=== PATIENT | female | born 1950 | race Caucasian/White ===

== ENCOUNTER 2018-07-26 21:00 | Inpatient (IN) | payer BC ==
[~2018-07-26] VITALS: Ht 157.5 cm; Wt 59.0 kg
[2018-07-26 21:00] VITALS: BP 130/76
--- NOTE | 2018-07-26 21:00 | NUR ---
ED Nurse Note: pt was brought in by ambulance from home c/o dry mouth, pt hr is elevated and breathing is fast, pt was advised to control breathing,. pt hooked on monitor. rt on bedside. ermd on bedside . will continue to monitor.
[2018-07-26] MEDS ORDERED: Meclizine 25mg tab ORAL ONE (21:15)
--- NOTE | 2018-07-26 21:18 | Emergency Room Report ---
History of Present Illness General Chief Complaint: Dyspnea/Respdistress Source: Patient Present Illness HPI Patient is a 68-year-old female presented from home after increased dizziness. Patient reports of increased vertigo sensation. She reports having associated nausea and dry mouth. She reports having some prior history of some type of encephalopathy. Patient presented via EMS. Allergies: Coded Allergies: No Known Allergies (Unverified , 07/26/18) Patient History Past Medical History: see triage record Last Menstrual Period: NA Reviewed Nursing Documentation: PMH: Agreed; PSxH: Agreed Nursing Documentation-PMH History Of Psychiatric Problem: Yes - ANXIETY Review of Systems All Other Systems: negative except mentioned in HPI Physical Exam Vital Signs Date Time Temp Pulse Resp B/P (MAP) Pulse Ox O2 Delivery O2 Flow Rate FiO2 07/26/18 20:49 98.6 84 16 130/76 100 Room Air Sp02 EP Interpretation: reviewed, normal General Appearance: normal inspection, alert, GCS 15, Chronically Ill Head: atraumatic ENT: normal ENT inspection, normal voice, other - decreased hearing Neck: normal inspection, supple, no bony tend, limited range of motion Respiratory: normal inspection, lungs clear, normal breath sounds, no respiratory distress, no retraction, no wheezing Cardiovascular #1: regular rate, rhythm, no edema Gastrointestinal: normal inspection, normal bowel sounds, non tender, soft, no guarding, no hernia Genitourinary: no CVA tenderness Musculoskeletal: normal inspection, back normal, normal range of motion Neurologic: normal inspection, alert, oriented x3, responsive, 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 Differential diagnosis include was not limited to hyperventilation, pulmonary embolism, acidosis, anemia among others. Because of complexity of patient's case laboratory testing and imaging studies were ordered. Patient was noted to have pH on ABG 7.6 associated with a low CO2 consistent with a respiratory acidosis. Patient was noted to have diminished bicarbonate level. She was started on IV fluids. Lactic acid level was noted to be markedly elevated. Patient shows some evidence of urinary infection was started on IV antibiotics. Chest x-ray 1 view read by radiology showed cardiomegaly and mild tortuosity of the thoracic aorta with lower lobe reticulonodular interstitial prominence. Dr. Adelso Metzger was contacted for inpatient management. Labs Test 07/26/18 21:10 07/26/18 21:12 07/26/18 21:25 07/26/18 22:10 White Blood Count 7.9 K/UL (4.8-10.8) Red Blood Count 4.54 M/UL (4.20-5.40) Hemoglobin 14.1 G/DL (12.0-16.0) Hematocrit 41.3 % (37.0-47.0) Mean Corpuscular Volume 91 FL (80-99) Mean Corpuscular Hemoglobin 31.1 PG (27.0-31.0) Mean Corpuscular Hemoglobin Concent 34.2 G/DL (32.0-36.0) Red Cell Distribution Width 10.4 % (11.6-14.8) Platelet Count 459 K/UL (150-450) Mean Platelet Volume 5.6 FL (6.5-10.1) Neutrophils (%) (Auto) 75.7 % (45.0-75.0) Lymphocytes (%) (Auto) 17.4 % (20.0-45.0) Monocytes (%) (Auto) 5.5 % (1.0-10.0) Eosinophils (%) (Auto) 0.5 % (0.0-3.0) Basophils (%) (Auto) 0.9 % (0.0-2.0) Sodium Level 133 MMOL/L (136-145) Potassium Level 3.4 MMOL/L (3.5-5.1) Chloride Level 97 MMOL/L (98-107) Carbon Dioxide Level 18 MMOL/L (21-32) Anion Gap 18 mmol/L (5-15) Blood Urea Nitrogen 15 mg/dL (7-18) Creatinine 0.9 MG/DL (0.55-1.30) Estimat Glomerular Filtration Rate > 60 mL/min (>60) Glucose Level 164 MG/DL (74-106) Lactic Acid Level 5.50 mmol/L (0.4-2.0) Calcium Level 9.4 MG/DL (8.5-10.1) Total Bilirubin 0.4 MG/DL (0.2-1.0) Aspartate Amino Transf (AST/SGOT) 15 U/L (15-37) Alanine Aminotransferase (ALT/SGPT) 19 U/L (12-78) Alkaline Phosphatase 62 U/L (46-116) Total Creatine Kinase 54 U/L (26-308) Creatine Kinase MB < 0.5 NG/ML (0.0-3.6) Creatine Kinase MB Relative Index 0.9 Troponin I 0.016 ng/mL (0.000-0.056) Total Protein 8.2 G/DL (6.4-8.2) Albumin 4.0 G/DL (3.4-5.0) Globulin 4.2 g/dL Albumin/Globulin Ratio 1.0 (1.0-2.7) Arterial Blood pH 7.614 (7.350-7.450) Arterial Blood Partial Pressure CO2 20.0 mmHg (35.0-45.0) Arterial Blood Partial Pressure O2 95.0 mmHg (75.0-100.0) Arterial Blood HCO3 19.8 mmol/L (22.0-26.0) Arterial Blood Oxygen Saturation 97.8 % (95-100) Arterial Blood Base Excess 0.7 (-2-2) Genaro Test Positive Urine Color Pale yellow Urine Appearance Slightly cloudy Urine pH 6 (4.5-8.0) Urine Specific [place] 1.025 (1.005-1.035) Urine Protein 1+ (NEGATIVE) Urine Glucose (UA) Negative (NEGATIVE) Urine Ketones 2+ (NEGATIVE) Urine Blood 4+ (NEGATIVE) Urine Nitrite Negative (NEGATIVE) Urine Bilirubin Negative (NEGATIVE) Urine Urobilinogen Normal MG/DL (0.0-1.0) Urine Leukocyte Esterase 1+ (NEGATIVE) Urine RBC 20-30 /HPF (0 - 2) Urine WBC 5-10 /HPF (0 - 2) Urine Squamous Epithelial Cells Few /LPF (NONE/OCC) Urine Bacteria Few /HPF (NONE) Urine Mucus Moderate /LPF (NONE/OCC) Salicylates Level 1.2 ug/mL (2.8-20) EKG Diagnostic Results Rate: normal Rhythm: NSR ST Segments: no acute changes Rhythm Strip Diag. Results EP Interpretation: yes Rhythm: NSR, no PVC's, no ectopy Last Vital Signs Date Time Temp Pulse Resp B/P (MAP) Pulse Ox O2 Delivery O2 Flow Rate FiO2 07/26/18 20:49 98.6 84 16 130/76 100 Room Air Status: improved Disposition: ADMITTED INPATIENT Condition: Stable Felipe Soliman MD Jul 26, 2018 21:18
[2018-07-26 21:45] LABS: BASOPHILS % (AUTO) 0.9 % (0.0-2.0); EOSINOPHILS % (AUTO) 0.5 % (0.0-3.0); HEMATOCRIT 41.3 % (37.0-47.0); HEMOGLOBIN 14.1 G/DL (12.0-16.0); LYMPHOCYTES % (AUTO) 17.4 % (20.0-45.0); MEAN CORPUSCULAR VOLUME 91 FL (80-99); MONOCYTES % (AUTO) 5.5 % (1.0-10.0); NEUTROPHILS % (AUTO) 75.7 % (45.0-75.0); PLATELET COUNT 459 K/UL (150-450); RED BLOOD COUNT 4.54 M/UL (4.20-5.40); RED CELL DISTRIBUTION WIDTH 10.4 % (11.6-14.8); WHITE BLOOD COUNT 7.9 K/UL (4.8-10.8)
[2018-07-26 21:45] LABS: APPEARANCE,URINE SLIGHTLY CLOUDY; BILIRUBIN, URINE NEGATIVE (NEGATIVE); COLOR,URINE PALE YELLOW; GLUCOSE, URINE (UA) NEGATIVE (NEGATIVE); KETONES,URINE 2+ (NEGATIVE); LEUKOCYTE ESTERASE ,URINE 1+ (NEGATIVE); NITRITE,URINE NEGATIVE (NEGATIVE); PH,URINE 6 (4.5-8.0); PROTEIN,URINE 1+ (NEGATIVE); UROBILINOGEN,URINE NORMAL MG/DL (0.0-1.0)
[2018-07-26 22:11] LABS: ANION GAP 18 mmol/L (5-15); BLOOD UREA NITROGEN 15 mg/dL (7-18); CALCIUM 9.4 MG/DL (8.5-10.1); CARBON DIOXIDE 18 MMOL/L (21-32); CHLORIDE 97 MMOL/L (98-107); CREATININE 0.9 MG/DL (0.55-1.30); POTASSIUM 3.4 MMOL/L (3.5-5.1); SODIUM 133 MMOL/L (136-145)
[2018-07-26 22:24] LABS: ALANINE AMINOTRANSFERASE 19 U/L (12-78); ALKALINE PHOSPHATASE 62 U/L (46-116); ASPARTATE AMINO TRANSFERASE 15 U/L (15-37); BILIRUBIN,TOTAL 0.4 MG/DL (0.2-1.0); CKMB < 0.5 NG/ML (0.0-3.6); CREATINE KINASE 54 U/L (26-308)
--- NOTE | 2018-07-26 22:43 | NUR ---
ED Nurse Note: pt went to ct with tech.
[2018-07-26 22:45] VITALS: BP 125/78
--- NOTE | 2018-07-26 22:53 | NUR ---
ED Nurse Note: pt went back fro ct with tech
[2018-07-26] MEDS ORDERED: Ampicillin/Sulbactam Sod 3 GM in NS 110 ML IVPB ONE (23:00)
[2018-07-26] MEDS ORDERED: Morphine Sulfate 2mg/ml Inj IVP PRN (23:30)
[2018-07-26] MEDS ORDERED: Acetaminophen 650 MG SUPP RECTAL PRN (23:30)
[2018-07-26] MEDS ORDERED: LEVOTHYROXINE75 MCG ORAL (23:51)
[2018-07-26 23:53] VITALS: BP 117/72
[2018-07-27] VITALS (7 sets, daily range): BP systolic 99–130; BP diastolic 62–91
--- NOTE | 2018-07-27 00:44 | NUR ---
ED Nurse Note: pt is admitted to the hospital, report given to sol scales.
--- NOTE | 2018-07-27 01:10 | NUR ---
ED Nurse Note: pt was trensfered by rn and funeral prearrangement counselor to room 202 tele,pt and pt belongings given to elidia scales.
--- NOTE | 2018-07-27 01:12 | NUR ---
NURSE NOTES: Received report from ER nurse RACHELL Duffy. Patient was transferred from ER via stretcher with 2 staff. patient is alert, verbally responsive, able to make needs known. denies any pain at this time. IV site is to right AC 20g and is intact. Oriented patient about the use of call light for assistance. Bed is in lowest position. Call light is within easy reach. Will continue to monitor. Addendum: 07/27/18 at 0228 by Krista Navarro RN NURSE NOTES: Received report from ER nurse Tati RN. Patient was transferred from ER via stretcher with 2 staff. patient is alert, verbally responsive, able to make needs known. denies any pain at this time. IV site is to Left AC 20g and is intact. Oriented patient about the use of call light for assistance. Bed is in lowest position. Call light is within easy reach. Will continue to monitor.
--- NOTE | 2018-07-27 01:15 | NUR ---
NURSE NOTES: Paged Feliciano Pineda , Currently awaiting for call back to verify admission orders.
--- NOTE | 2018-07-27 03:28 | NUR ---
NURSE NOTES: Received call from Dr Metzger with Diet order, CBC, BMP in AM. per Dr Metzger, call Dr Zaldivar to verify other orders. Paged Dr Zaldivar. Currently awaiting for Dr. Zaldivar to call back.
--- NOTE | 2018-07-27 05:56 | NUR ---
NURSE NOTES: paged/ left message with Dr Zaldivar again.
[2018-07-27 06:52] LABS: BASOPHILS % (AUTO) 0.5 % (0.0-2.0); EOSINOPHILS % (AUTO) 0.3 % (0.0-3.0); HEMATOCRIT 37.5 % (37.0-47.0); HEMOGLOBIN 12.9 G/DL (12.0-16.0); LYMPHOCYTES % (AUTO) 18.8 % (20.0-45.0); MEAN CORPUSCULAR VOLUME 91 FL (80-99); MONOCYTES % (AUTO) 6.7 % (1.0-10.0); NEUTROPHILS % (AUTO) 73.7 % (45.0-75.0); PLATELET COUNT 370 K/UL (150-450); RED BLOOD COUNT 4.13 M/UL (4.20-5.40); RED CELL DISTRIBUTION WIDTH 10.9 % (11.6-14.8); WHITE BLOOD COUNT 8.2 K/UL (4.8-10.8)
[2018-07-27 07:01] LABS: ANION GAP 10 mmol/L (5-15); BLOOD UREA NITROGEN 9 mg/dL (7-18); CALCIUM 8.9 MG/DL (8.5-10.1); CARBON DIOXIDE 25 MMOL/L (21-32); CHLORIDE 105 MMOL/L (98-107); CREATININE 0.8 MG/DL (0.55-1.30); POTASSIUM 3.7 MMOL/L (3.5-5.1); SODIUM 140 MMOL/L (136-145)
--- NOTE | 2018-07-27 07:54 | NUR ---
HAND-OFF: Report given to RACHELL Desai .
--- NOTE | 2018-07-27 07:54 | NUR ---
NURSE NOTES: Received report from Tete LOVETT. Pt is awake, alert, oriented x4, sitting up in bed having breakfast. Denies pain currently, on room air with no respiratory distress. Skin is intact. IV access on left AC #20G, saline lock, patent/intact. Pt is ambulatory with steady gait, however feeling weak and tired. PT eval to be done today. Call light is placed within easy reach, bed in lowest position, two side rails up, brakes engaged, alarm on. Will continue to monitor and follow plan of care per MD orders and protocol.
[2018-07-27 08:16] LABS: ALANINE AMINOTRANSFERASE 17 U/L (12-78); ALBUMIN 3.4 G/DL (3.4-5.0); ALKALINE PHOSPHATASE 53 U/L (46-116); ASPARTATE AMINO TRANSFERASE 15 U/L (15-37); BILIRUBIN,DIRECT < 0.1 MG/DL (0.0-0.3); BILIRUBIN,TOTAL 0.5 MG/DL (0.2-1.0); CHOLESTEROL 204 MG/DL (< 200); HDL CHOLESTEROL 50 MG/DL (40-60); TRIGLYCERIDES 69 MG/DL (30-150)
[2018-07-27] MEDS ORDERED: Heparin 5000 units/ml inj SUBQ SCH (09:00)
[2018-07-27] MEDS ORDERED: Morphine Sulfate 2mg/ml Inj IVP PRN ×2 (10:30→17:05)
[2018-07-27] MEDS ORDERED: Acetaminophen 650 MG SUPP RECTAL PRN ×2 (10:30→17:05)
--- NOTE | 2018-07-27 10:58 | Diagnostic Imaging Report ---
Indication: Headache Technique: Contiguous 5 mm thick transaxial imaging of the head obtained in a Siemens Sensation [address] scanner. Soft tissue and bone windows generated. Automatic Exposure Control was utilized. Total Dose length Product (DLP): 1390.[address] Dose Index Volume (CTDIvol): 70.38 mGy Comparison: none Findings: The size and configuration of the cortical sulci, basal cisterns, and ventricles are within normal limits for age. There is no mass effect, midline shift, or edema identified. There is no evidence of acute hemorrhage or abnormal intra-axial or extra-axial fluid collections. The bones and soft tissues are unremarkable. Impression: No mass effect, edema or acute bleed. The CT scanner at [facility] is accredited by the [employer] and the scans are performed using dose optimization techniques as appropriate to a performed exam including Automatic Exposure control.
--- NOTE | 2018-07-27 11:45 | Diagnostic Imaging Report ---
Indication: Dyspnea Comparison: None A single view chest radiograph was obtained. Findings: Interstitial prominence demonstrated. Mild vascular prominence also noted with borderline cardiomegaly. Bones are osteopenic. IMPRESSION: Suspected mild CHF
--- NOTE | 2018-07-27 14:13 | Consultation ---
History of Present Illness General Date patient seen: Jul 27, 2018 Chief Complaint: Dyspnea/Respdistress Present Illness HPI 68-year-old female without any PMHx presented to ER with cc of dizziness and vertigo sensation. She reports having associated nausea and dry mouth. On further questioning, pt stated that she was invited to a green party and she might have ingested some brownies with Marijuana, Allergies: Coded Allergies: No Known Allergies (Unverified , 07/26/18) Medication History Scheduled Levothyroxine Sodium* (Levothyroxine Sodium*), 75 MCG ORAL DAILY, (Reported) Patient History Healthcare decision maker Resuscitation status Full Code Advanced Directive on File No Past Medical/Surgical History Past Medical/Surgical History: (1) Hypothyroidism Review of Systems All Other Systems: negative except mentioned in HPI Physical Exam General Appearance: WD/WN Lines, tubes and drains: peripheral HEENT: normocephalic, atraumatic Neck: non-tender, normal alignment Respiratory/Chest: chest wall non-tender, lungs clear Cardiovascular/Chest: normal peripheral pulses Abdomen: normal bowel sounds, non tender Skin Exam: normal pigmentation 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 normal Last 24 Hour Vital Signs Date Time Temp Pulse Resp B/P (MAP) Pulse Ox O2 Delivery O2 Flow Rate FiO2 07/27/18 12:00 98.1 70 18 99/63 (75) 98 07/27/18 09:00 Room Air 07/27/18 08:00 80 07/27/18 08:00 97.4 92 18 110/76 (87) 97 07/27/18 04:00 84 07/27/18 04:00 98.2 77 20 106/72 (83) 97 07/27/18 02:02 Room Air 07/27/18 02:01 95 07/27/18 01:10 98.0 88 24 129/76 99 Room Air 07/27/18 01:10 99.2 88 20 113/78 (90) 97 07/27/18 01:05 98.6 88 16 125/78 100 Room Air 07/26/18 23:53 98.0 96 17 117/72 100 Room Air 07/26/18 22:45 98.6 90 16 125/78 100 Room Air 07/26/18 21:00 98.6 84 16 130/76 100 Room Air 07/26/18 21:00 84 16 Room Air 07/26/18 20:49 98.6 84 16 130/76 100 Room Air Intake and Output 07/26/18 07/27/18 18:59 06:59 Intake Total 3970 ml Balance 3970 ml Intake Oral 260 ml IV Total 3710 ml # Voids 7 Laboratory Tests Test 07/26/18 21:10 07/26/18 21:12 07/26/18 21:25 07/26/18 21:49 White Blood Count 7.9 K/UL (4.8-10.8) Red Blood Count 4.54 M/UL (4.20-5.40) Hemoglobin 14.1 G/DL (12.0-16.0) Hematocrit 41.3 % (37.0-47.0) Mean Corpuscular Volume 91 FL (80-99) Mean Corpuscular Hemoglobin 31.1 PG (27.0-31.0) H Mean Corpuscular Hemoglobin Concent 34.2 G/DL (32.0-36.0) Red Cell Distribution Width 10.4 % (11.6-14.8) L Platelet Count 459 K/UL (150-450) H Mean Platelet Volume 5.6 FL (6.5-10.1) L Neutrophils (%) (Auto) 75.7 % (45.0-75.0) H Lymphocytes (%) (Auto) 17.4 % (20.0-45.0) L Monocytes (%) (Auto) 5.5 % (1.0-10.0) Eosinophils (%) (Auto) 0.5 % (0.0-3.0) Basophils (%) (Auto) 0.9 % (0.0-2.0) Sodium Level 133 MMOL/L (136-145) L Potassium Level 3.4 MMOL/L (3.5-5.1) L Chloride Level 97 MMOL/L (98-107) L Carbon Dioxide Level 18 MMOL/L (21-32) L Anion Gap 18 mmol/L (5-15) H Blood Urea Nitrogen 15 mg/dL (7-18) Creatinine 0.9 MG/DL (0.55-1.30) Estimat Glomerular Filtration Rate > 60 mL/min (>60) Glucose Level 164 MG/DL (74-106) H Lactic Acid Level 5.50 mmol/L (0.4-2.0) H 2.30 mmol/L (0.66-2.22) H Calcium Level 9.4 MG/DL (8.5-10.1) Total Bilirubin 0.4 MG/DL (0.2-1.0) Aspartate Amino Transf (AST/SGOT) 15 U/L (15-37) Alanine Aminotransferase (ALT/SGPT) 19 U/L (12-78) Alkaline Phosphatase 62 U/L (46-116) Total Creatine Kinase 54 U/L (26-308) Creatine Kinase MB < 0.5 NG/ML (0.0-3.6) Creatine Kinase MB Relative Index 0.9 Troponin I 0.016 ng/mL (0.000-0.056) Total Protein 8.2 G/DL (6.4-8.2) Albumin 4.0 G/DL (3.4-5.0) Globulin 4.2 g/dL Albumin/Globulin Ratio 1.0 (1.0-2.7) Arterial Blood pH 7.614 (7.350-7.450) Arterial Blood Partial Pressure CO2 20.0 mmHg (35.0-45.0) *L Arterial Blood Partial Pressure O2 95.0 mmHg (75.0-100.0) Arterial Blood HCO3 19.8 mmol/L (22.0-26.0) L Arterial Blood Oxygen Saturation 97.8 % (95-100) Arterial Blood Base Excess 0.7 (-2-2) Genaro Test Positive Urine Color Pale yellow Urine Appearance Slightly cloudy Urine pH 6 (4.5-8.0) Urine Specific [place] 1.025 (1.005-1.035) Urine Protein 1+ (NEGATIVE) H Urine Glucose (UA) Negative (NEGATIVE) Urine Ketones 2+ (NEGATIVE) H Urine Blood 4+ (NEGATIVE) H Urine Nitrite Negative (NEGATIVE) Urine Bilirubin Negative (NEGATIVE) Urine Urobilinogen Normal MG/DL (0.0-1.0) Urine Leukocyte Esterase 1+ (NEGATIVE) H Urine RBC 20-30 /HPF (0 - 2) H Urine WBC 5-10 /HPF (0 - 2) H Urine Squamous Epithelial Cells Few /LPF (NONE/OCC) Urine Bacteria Few /HPF (NONE) Urine Mucus Moderate /LPF (NONE/OCC) H Test 07/26/18 22:10 07/27/18 06:40 Salicylates Level 1.2 ug/mL (2.8-20) L White Blood Count 8.2 K/UL (4.8-10.8) Red Blood Count 4.13 M/UL (4.20-5.40) L Hemoglobin 12.9 G/DL (12.0-16.0) Hematocrit 37.5 % (37.0-47.0) Mean Corpuscular Volume 91 FL (80-99) Mean Corpuscular Hemoglobin 31.3 PG (27.0-31.0) H Mean Corpuscular Hemoglobin Concent 34.5 G/DL (32.0-36.0) Red Cell Distribution Width 10.9 % (11.6-14.8) L Platelet Count 370 K/UL (150-450) Mean Platelet Volume 5.6 FL (6.5-10.1) L Neutrophils (%) (Auto) 73.7 % (45.0-75.0) Lymphocytes (%) (Auto) 18.8 % (20.0-45.0) L Monocytes (%) (Auto) 6.7 % (1.0-10.0) Eosinophils (%) (Auto) 0.3 % (0.0-3.0) Basophils (%) (Auto) 0.5 % (0.0-2.0) Sodium Level 140 MMOL/L (136-145) Potassium Level 3.7 MMOL/L (3.5-5.1) Chloride Level 105 MMOL/L (98-107) Carbon Dioxide Level 25 MMOL/L (21-32) Anion Gap 10 mmol/L (5-15) Blood Urea Nitrogen 9 mg/dL (7-18) Creatinine 0.8 MG/DL (0.55-1.30) Estimat Glomerular Filtration Rate > 60 mL/min (>60) Glucose Level 99 MG/DL (74-106) Calcium Level 8.9 MG/DL (8.5-10.1) Total Bilirubin 0.5 MG/DL (0.2-1.0) Direct Bilirubin < 0.1 MG/DL (0.0-0.3) Aspartate Amino Transf (AST/SGOT) 15 U/L (15-37) Alanine Aminotransferase (ALT/SGPT) 17 U/L (12-78) Alkaline Phosphatase 53 U/L (46-116) Total Protein 7.3 G/DL (6.4-8.2) Albumin 3.4 G/DL (3.4-5.0) Triglycerides Level 69 MG/DL (30-150) Cholesterol Level 204 MG/DL (< 200) H LDL Cholesterol Direct Pending HDL Cholesterol 50 MG/DL (40-60) Thyroid Stimulating Hormone (TSH) 1.384 uiU/mL (0.358-3.740) Microbiology Date/Time Source Procedure Growth Status 07/26/18 23:30 Nasal Nares Influenza Types A,B Antigen (ALBA) - Final Complete Height (Feet): 5 Height (Inches): 2.00 Weight (Pounds): 130 Medications Current Medications Medications (Trade) Dose Ordered Sig/Sai Route PRN Reason Start Time Stop Time Status Last Admin Dose Admin Acetaminophen (Tylenol) 650 mg Q6H PRN RECTAL TEMP>100.5 07/27/18 10:30 08/26/18 10:29 Heparin Sodium (Porcine) (Heparin 5000 units/ml) 5,000 units EVERY 12 HOURS SUBQ 07/27/18 09:00 08/26/18 08:59 07/27/18 10:08 Levothyroxine Sodium (Synthroid) 75 mcg ACBREAKFAST ORAL 07/27/18 16:30 08/26/18 16:29 Morphine Sulfate (Morphine Sulfate) 2 mg Q4H PRN IVP Moderate Pain (Pain Scale 4-6) 07/27/18 10:30 08/03/18 10:29 Ondansetron HCl (Zofran) 4 mg Q6H PRN IVP Nausea & Vomiting 07/27/18 10:30 08/26/18 10:29 Assessment/Plan Problem List: (1) Acute encephalopathy ICD Codes: G93.40 - Encephalopathy, unspecified SNOMED: 80323998, 030618566 (2) Accidental cannabis overdose ICD Codes: T40.7X1A - Poisoning by cannabis (derivatives), accidental ( unintentional), initial encounter SNOMED: 568450057 (3) Hypothyroidism ICD Codes: E03.9 - Hypothyroidism, unspecified SNOMED: 44751045 (4) Episode of dizziness ICD Codes: R42 - Dizziness and giddiness SNOMED: 002508125 Assessment/Plan symptomatic treatment iv fluids resume Synthyroid dvt prophylaxis can go to med/surg Zarrabi,Mirali MD Jul 27, 2018 14:13
--- NOTE | 2018-07-27 16:24 | NUR ---
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 ALKALOSIS/METABOLIC T. 98.6 HR 84 RR 16 B/P 130/76 UA+PROTEIN,KETONES,BLOOD,LEUKOCYTE ESTERASE,RBC,WBC,SQUAMOUS EPITH PH 7.61 PCO2 20 PO2 95.0 HCO3 19.8 O2 SAT 97.8 CXR= Slightly increasing interstitial markings bilaterally may be reflective developing mild interstitial edema or pneumonitis. Correlate clinically. CT HEAD+ NO ACUTE BLEED IS: IV BOLUS NS X 1 LITER ZOFRAN IV ANTIVERT PO ADMITTED TO TELE @0110 TELE STATUS
--- NOTE | 2018-07-27 16:40 | NUR ---
TRANSFER TO FLOOR: Patient transferred to Med Surg Rm 411-1 from Tele as ordered. Tele monitor removed and returned. Report given to Tish LOVETT. Pt's belonging's list checked and signed with the receiving nurse in front of the pt. Endorsed missing white T-shirt with a pin from ER (pt brought this to my attention at 1pm, contacted ER and was told by MD who answered the phone at the nurse's station "we're short staffed and very busy, please call us back". Skin is intact. Pt was transferred via hospital bed, in stable condition. Endorsed plan of care.
--- NOTE | 2018-07-27 17:08 | NUR ---
NURSE NOTES: Received patient from RACHELL Desai. Transferred from [facility], awake, not in respiratory distress, in room air. Iv is at left antecubetal, G20 saline lock, patent. . Will continue to monitor patient.Patient in bed, bed locked, in the lowest position, call light is within reach
--- NOTE | 2018-07-27 19:00 | History and Physical Report ---
DATE OF ADMISSION: 07/26/2018 TIME SEEN: On 07/27/2018 at 1 p.m. CONSULTANTS: 1. Solange Zaldivar M.D. 2. Luis Eduardo Bryant M.D. 3. 4. Raul Person M.D. CHIEF COMPLAINT: Dizziness, vertigo, shortness of breath, UTI, respiratory alkalosis. BRIEF HISTORY: This is a 68-year-old female, who lives at home and presents with 2 days of increased dizziness, had some vertigo and shortness of breath. No nausea or vomiting. Came into [facility], diagnosed with UTI, dizziness, shortness of breath, respiratory alkalosis, and admitted to telemetry for further care. Currently, calm in bed, feeling slightly better, no complaint. REVIEW OF SYSTEMS: No chest pain. No shortness of breath. No nausea or vomiting. No diarrhea. PAST MEDICAL HISTORY: Includes respiratory alkalosis, metabolic acidosis, urinary tract infection, and hypothyroid. PAST SURGICAL HISTORY: None. ALLERGIES: Denies. MEDICATIONS: Include levothyroxine, Tylenol, morphine, Zofran, heparin, IV fluids, Augmentin. SOCIAL HISTORY: No smoking. No alcohol. No intravenous drug abuse. FAMILY HISTORY: Noncontributory. PHYSICAL EXAMINATION: GENERAL: Slightly anxious in bed, oriented x3, in no acute distress. VITAL SIGNS: Temperature 98, pulse 78, respiratory rate 18, blood pressure 99/63. CARDIOVASCULAR: No murmur. LUNGS: Distant and clear. ABDOMEN: Bowel sounds positive. Nontender. Nondistended. EXTREMITIES: No cyanosis or edema. NEUROLOGIC: The patient moves all extremities, slightly weak. LABORATORY AND DIAGNOSTIC DATA: Labs at this time show CBC is normal. BMP is normal except for lactic acid of 2.3. Urinalysis showed 1+ leukocyte esterase. Urine-tox, salicylates 1.2. ASSESSMENT: Dizziness, vertigo, shortness of breath, respiratory alkalosis, UTI, hypothyroid. PLAN: Antibiotics per Infectious Disease. O2 and pulmonary treatment as needed. PT and dietary evaluation. CBC and BMP in the morning. Resume home medications. Adelso Metzger D.O. DR: Ariadna JOB#: [id number] CC:
--- NOTE | 2018-07-27 19:30 | NUR ---
HAND-OFF: Report given to RACHELL Zamora.
--- NOTE | 2018-07-27 19:45 | NUR ---
NURSE NOTES: Received report from RACHELL Winston. Patient A&Ox4, on room air. No signs of distress or labored breathing IV intact, patent, and saline locked. Bed in lowest position with call light in reach. Will continue with plan of care.
[2018-07-27] MEDS: Heparin 5000 units/ml inj SUBQ SCH (21:51)
--- NOTE | 2018-07-28 01:28 | NUR ---
HAND-OFF: Report given to RACHELL Infante. Patient sleeping, in stable condition.
--- NOTE | 2018-07-28 01:30 | NUR ---
NURSE NOTES: Received a report from RACHELL Villareal. Pt is in stable condition. Sleeping comfortably. No respiratory distress noted. On room air. No c/o pain/discomfort. IV site is patent and intact. Bed in lowest position. Bed alarm is on. Call light within reach. Will continue to monitor.
[2018-07-28 04:00] VITALS: BP 116/61
[2018-07-28 06:35] LABS: BASOPHILS % (AUTO) 0.9 % (0.0-2.0); EOSINOPHILS % (AUTO) 4.7 % (0.0-3.0); HEMATOCRIT 38.3 % (37.0-47.0); LYMPHOCYTES % (AUTO) 41.5 % (20.0-45.0); MEAN CORPUSCULAR VOLUME 93 FL (80-99); MONOCYTES % (AUTO) 8.9 % (1.0-10.0); PLATELET COUNT 342 K/UL (150-450); RED BLOOD COUNT 4.14 M/UL (4.20-5.40); RED CELL DISTRIBUTION WIDTH 11.1 % (11.6-14.8); WHITE BLOOD COUNT 5.3 K/UL (4.8-10.8)
[2018-07-28 06:40] LABS: ANION GAP 5 mmol/L (5-15); BLOOD UREA NITROGEN 11 mg/dL (7-18); CARBON DIOXIDE 30 MMOL/L (21-32); CHLORIDE 105 MMOL/L (98-107); CREATININE 0.9 MG/DL (0.55-1.30); POTASSIUM 4.6 MMOL/L (3.5-5.1); SODIUM 140 MMOL/L (136-145)
--- NOTE | 2018-07-28 07:50 | NUR ---
HAND-OFF: Report given to RACHELL Rubio.
[2018-07-28 08:00] VITALS: BP 110/70
--- NOTE | 2018-07-28 08:00 | NUR ---
NURSE NOTES: Pt awake. Hard of hearing wears hearing aid. Device broken to rt ear. Encouraged not to be device in ear. Since it is broken. Will follow up with social worker delinquency prevention for possible repair. Call light is in reach
[2018-07-28] MEDS: Heparin 5000 units/ml inj SUBQ SCH (08:45)
--- NOTE | 2018-07-28 10:25 | Consultation ---
History of Present Illness General Date patient seen: Jul 28, 2018 Chief Complaint: Dyspnea/Respdistress Reason for Consultation: UTI Present Illness HPI Ms. Paul is a 68 yo female with PMHx of Hypothyroid who presented to [facility] ED with nausea, dizziness and SOB. In the ED she was afebrile, had no leukocytosis and negative CT head. her CXR showed signs of mild CHF and her UA had 5-10 WBCs. Her lactate improved with IV fluid. Currently she is aferbile and has been feeling better the nausea and vomiting has resolved. She denies fever, chills, dysuria and hematuria. ID was consulted for UTI. PMHx/PSHx Hypothyroid SocHx No E/T/D FamHx Not contributory Allergies: Coded Allergies: No Known Allergies (Unverified , 07/26/18) Medication History Scheduled Levothyroxine Sodium* (Levothyroxine Sodium*), 75 MCG ORAL DAILY, (Reported) Patient History Healthcare decision maker Resuscitation status Full Code Advanced Directive on File No Review of Systems ROS Narrative 12 point ROS negative except as note in the HPI. Physical Exam Last 24 Hour Vital Signs Date Time Temp Pulse Resp B/P (MAP) Pulse Ox O2 Delivery O2 Flow Rate FiO2 07/28/18 04:00 97.1 61 18 116/61 (79) 99 07/27/18 21:00 Room Air 07/27/18 20:00 97.7 75 18 115/62 (79) 95 07/27/18 16:00 98.1 78 18 130/91 (104) 99 07/27/18 12:00 70 07/27/18 12:00 98.1 70 18 99/63 (75) 98 Intake and Output 07/27/18 07/28/18 19:00 07:00 Intake Total 560 ml Output Total 400 ml Balance 160 ml Intake Oral 560 ml Output Urine Total 400 ml # Voids 3 3 Laboratory Tests Test 07/28/18 05:25 White Blood Count 5.3 K/UL (4.8-10.8) Red Blood Count 4.14 M/UL (4.20-5.40) L Hemoglobin 13.0 G/DL (12.0-16.0) Hematocrit 38.3 % (37.0-47.0) Mean Corpuscular Volume 93 FL (80-99) Mean Corpuscular Hemoglobin 31.4 PG (27.0-31.0) H Mean Corpuscular Hemoglobin Concent 33.9 G/DL (32.0-36.0) Red Cell Distribution Width 11.1 % (11.6-14.8) L Platelet Count 342 K/UL (150-450) Mean Platelet Volume 6.2 FL (6.5-10.1) L Neutrophils (%) (Auto) 44.0 % (45.0-75.0) L Lymphocytes (%) (Auto) 41.5 % (20.0-45.0) Monocytes (%) (Auto) 8.9 % (1.0-10.0) Eosinophils (%) (Auto) 4.7 % (0.0-3.0) H Basophils (%) (Auto) 0.9 % (0.0-2.0) Sodium Level 140 MMOL/L (136-145) Potassium Level 4.6 MMOL/L (3.5-5.1) Chloride Level 105 MMOL/L (98-107) Carbon Dioxide Level 30 MMOL/L (21-32) Anion Gap 5 mmol/L (5-15) Blood Urea Nitrogen 11 mg/dL (7-18) Creatinine 0.9 MG/DL (0.55-1.30) Estimat Glomerular Filtration Rate > 60 mL/min (>60) Glucose Level 94 MG/DL (74-106) Calcium Level 9.0 MG/DL (8.5-10.1) Height (Feet): 5 Height (Inches): 2.00 Weight (Pounds): 130 Medications Current Medications Medications (Trade) Dose Ordered Sig/Sai Route PRN Reason Start Time Stop Time Status Last Admin Dose Admin Acetaminophen (Tylenol) 650 mg Q6H PRN RECTAL TEMP>100.5 07/27/18 17:05 08/26/18 17:04 Heparin Sodium (Porcine) (Heparin 5000 units/ml) 5,000 units EVERY 12 HOURS SUBQ 07/27/18 21:00 08/26/18 08:59 07/27/18 21:51 Levothyroxine Sodium (Synthroid) 75 mcg ACBREAKFAST ORAL 07/28/18 06:30 08/26/18 16:29 07/28/18 05:48 Morphine Sulfate (Morphine Sulfate) 2 mg Q4H PRN IVP Moderate Pain (Pain Scale 4-6) 07/27/18 17:05 08/03/18 17:04 Ondansetron HCl (Zofran) 4 mg Q6H PRN IVP Nausea & Vomiting 07/27/18 17:05 08/26/18 17:04 Objective Narrative Gen: NAD, well appearing, alert HEENT: NCAT, MMM, EOMI, PERRL, No Oral lesion, no scleral icterus NECK: full range of motion, supple, no meningismus, No LAD, No JVD LUNGS: CTAB, No W/C, No Accessory muscle use CARDS: RRR, S1, S2, No M/R/G, ABD: Soft, NT, ND, No R/G, + BS, No HSM, No Masses : Deferred Ext: C/C/E, Pulses 2+ B/L (DP, Rad): NEURO: A/O x 4, Strength and Sensation Grossly intact PSYCH: Mood/affect normal SKIN: Warm/dry, No rashes Assessment/Plan Assessment/Plan 68 yo female with PMHx of Hypothyroid who presented to [facility] ED with nausea, dizziness and SOB. UTI - Asymptomatic Doing well off abx UA 5-10 WBCs No urine Cx Nausea and dizziness Resolved Hypothyroid PLAN - Would continue to monitor off abx - Monitor CBC and Temps Thank you for this consult. We will continue to follow the patient during this hospitalization. Manish Chacko MD Jul 28, 2018 10:25
[2018-07-28 12:00] VITALS: BP 133/82
--- NOTE | 2018-07-28 12:01 | NUR ---
*-* NO INS INFORMATION IN THE BAR TO FAX CLINICALS OR REVIEWS *-*
[2018-07-28] MEDS ORDERED: NS 110ml ONE (13:20)
--- NOTE | 2018-07-28 13:24 | NUR ---
NURSE NOTES: Pt left AMA risk and benefits explained. Pt friend is here to escort her home. Requested that IV be removed earlier in shift. " I do not know why I am here [facility] at [facility]" As pt was leaving she met with with Dr. Metzger. Attempted to encourage her to stay to review results from cardiology and neurology. " I do not want to be here anymore, you want me to wait for how long?' informed her that he would paged the. " I just want to leave" " I am here for nothing I have cats"Pt escorted down stairs to retrieve her medical information, per her request. Denies pain or discomfort. Charge Nurse is aware. Dr Metzger gave pt his card to follow up with any concerns she might have.
--- NOTE | 2018-07-28 13:29 | General Progress Note ---
Assessment/Plan Problem List: (1) Urinary tract infection ICD Codes: N39.0 - Urinary tract infection, site not specified SNOMED: 40844476 (2) Hypothyroidism ICD Codes: E03.9 - Hypothyroidism, unspecified SNOMED: 57544919 (3) Accidental cannabis overdose ICD Codes: T40.7X1A - Poisoning by cannabis (derivatives), accidental ( unintentional), initial encounter SNOMED: 644875957 (4) Episode of dizziness ICD Codes: R42 - Dizziness and giddiness SNOMED: 102508299 (5) Acute encephalopathy ICD Codes: G93.40 - Encephalopathy, unspecified SNOMED: 04406819, 857063404 Status: unchanged Assessment/Plan pt leaving [facility], f/u w pcp won Subjective Constitutional: Reports: weakness Allergies: Coded Allergies: No Known Allergies (Unverified , 07/26/18) All Systems: reviewed and negative except above Subjective sl anxious wants to leave [facility] Objective Last 24 Hour Vital Signs Date Time Temp Pulse Resp B/P (MAP) Pulse Ox O2 Delivery O2 Flow Rate FiO2 07/28/18 12:00 98.1 87 19 133/82 (99) 100 07/28/18 09:00 Room Air 07/28/18 08:00 97.3 17 110/70 (83) 98 07/28/18 04:00 97.1 61 18 116/61 (79) 99 07/27/18 21:00 Room Air 07/27/18 20:00 97.7 75 18 115/62 (79) 95 07/27/18 16:00 98.1 78 18 130/91 (104) 99 Intake and Output 07/27/18 07/28/18 19:00 07:00 Intake Total 560 ml Output Total 400 ml Balance 160 ml Intake Oral 560 ml Output Urine Total 400 ml # Voids 3 3 Laboratory Tests 07/28/18 05:25: White Blood Count 5.3, Red Blood Count 4.14L, Hemoglobin 13.0, Hematocrit 38.3, Mean Corpuscular Volume 93, Mean Corpuscular Hemoglobin 31.4H, Mean Corpuscular Hemoglobin Concent 33.9, Red Cell Distribution Width 11.1L, Platelet Count 342, Mean Platelet Volume 6.2L, Neutrophils (%) (Auto) 44.0L, Lymphocytes (%) (Auto) 41.5, Monocytes (%) (Auto) 8.9, Eosinophils (%) (Auto) 4.7H, Basophils (%) (Auto ) 0.9, Sodium Level 140, Potassium Level 4.6, Chloride Level 105, Carbon Dioxide Level 30, Anion Gap 5, Blood Urea Nitrogen 11, Creatinine 0.9, Estimat Glomerular Filtration Rate > 60, Glucose Level 94, Calcium Level 9.0 Height (Feet): 5 Height (Inches): 2.00 Weight (Pounds): 130 General Appearance: alert EENT: normal ENT inspection Cardiovascular: normal peripheral pulses, normal rate, regular rhythm Respiratory/Chest: chest wall non-tender, lungs clear, normal breath sounds Abdomen: normal bowel sounds, non tender, soft Extremities: normal inspection Edema: no edema noted Arm (L), no edema noted Arm (R), no edema noted Leg (L), no edema noted Leg (R), no edema noted Pedal (L), no edema noted Pedal (R), no edema noted Generalized Neurologic: responsive, motor weakness Skin: normal pigmentation, warm/dry Adelso Metzger DO Jul 28, 2018 13:29
--- NOTE | 2018-07-30 07:13 | Discharge Summary ---
Discharge Summary Discharge Summary _ DATE OF ADMISSION: 07/26/2018 DATE OF DISCHARGE: 07/28/2018 Patient signed AGAINST MEDICAL ADVICE REASON FOR ADMISSION: 68 years old female with past medical history of hypothyroidism presented to emergency room complaining of dizziness and vertigo sensations. Patient reported associated nausea and dry mouth. Upon further questioning , patient stated that she was invited to a libertarian and might have ingested some brownies with marijuana. Upon evaluation vital signs were stable. No leukocytosis , stable hemoglobin and hematocrit. Sodium 133, potassium 3.4. Glucose 164. Lactic acid 5.5. Repeated lactic acid 2.3. Troponin negative. EKG revealed normal sinus rhythm. No acute ischemic changes. Chest x-ray revealed no acute cardiopulmonary pathology . CT head revealed no acute intracranial pathology . Salicylate level 1.2. ABG revealed evidence of respiratory alkalosis. Urinalysis revealed pyuria and only few bacteria. Patient was admitted for further management CONSULTANTS: pulmonary Dr. Zen FRY specialist Dr. Bryant [facility] COURSE: Patient admitted and started on IV hydration. Symptomatic treatment with antiemetics and meclizine provided as needed. Diet provided as tolerated. Levothyroxine was resumed. TSH was within normal limits. DVT prophylaxis provided. Infectious disease specialist followed. Patient had no urinary complaints. Blood cultures were negative. Influenza screen test was negative. Patient remained afebrile , without leukocytosis. Infectious disease specialist recommended to keep patient off antibiotics. Dizziness and nausea resolved. Repeated electrolytes stable. Lipid panel revealed elevated total cholesterol of 204 and elevated LDL of 127. Patient was counseled on low-fat low-cholesterol diet. Repeat lipid panel in 3 months, and if still abnormal, consider starting statin. Patient decided to leave AGAINST MEDICAL ADVICE. The risks and consequences of signing AGAINST MEDICAL ADVICE were discussed with patient in detail. Patient verbalized understanding, nevertheless signed AMA form and left. FINAL DIAGNOSES: Acute encephalopathy Accidental cannabis overdose Hypothyroidism Episode of dizziness Respiratory alkalosis Lactic acidosis Hypercholesterolemia I have been assigned to dictate discharge summary for this account. I was not involved in the patient's management. Yovana Franco NP Jul 30, 2018 07:13
--- NOTE | 2018-07-31 23:41 | Cardiology Report ---
APPROVED REPORT EKG Measurement Heart [id number] Sinus tachycardia Minimal voltage criteria for LVH, may be normal variant Nonspecific ST and T wave abnormality Abnormal ECG
== END 2018-07-28 13:21 | disposition left against medical advice (07) | DRG 689 ==
LOC: EDBD 21:00 → EMR 21:30 → 2E 22:23 → EDBEDREQ 07-27 00:36 → 4E 07-27 16:50
DX: N39.0 Urinary tract infection, site not specified (principal); G92 Toxic encephalopathy; E87.3 Alkalosis; E87.2 Acidosis; T40.7X1A Poisoning by cannabis (derivatives), accidental (unintentional), initial encounter; E03.9 Hypothyroidism, unspecified; E78.00 Pure hypercholesterolemia, unspecified; Y92.9 Unspecified place or not applicable
CPT/HCPCS: 36415; 36600; 70450; 71045; 80048; 80053; 80329; 81003; 82040; 82247; 82248; 82465; 82550; 82553; 82803; 83605; 83718; 83721; 84075; 84155; 84443; 84450; 84460; 84478; 84484; 85025; 86710; 87040; 93005; 96361; 96365; 96375; 99285; J2405